=== PATIENT | female | born 1950 | race Caucasian/White ===

== ENCOUNTER 2017-04-11 14:20 | Emergency (ER) | payer OTHER, MEDICARE ==
[2017-04-11 14:31] VITALS: BP 155/98; PULSE 87; TEMP 98; BMI 36.6
--- NOTE | 2017-04-11 15:13 | PDOC ---
History of Present Illness - General Chief Complaint: Injury Stated Complaint: TRIP&FALL, RT HAND/WRIST, LF ELBOW/SHOULDER PAIN Time Seen by Provider: 04/11/17 14:35 - History of Present Illness Initial Comments: 04/11/17 15:24 66 yo F with h/o arthritis who presents for wrist/elbow pain. She reports walking down sidewalk one week ago and tripped landing on her right hand/elbow and left shoulder/elbow. Denies popping sensation or audible popping at time of incident. She presents 1 week later because she now has health insurance. States that at time of incidence she had was unable to passively move left shoulder d/t pain. Pain has improved. Complains of multiple healing bruises and abrasions. Denies head, neck, or back trauma or pain. Denies numbness/tingling, burning, swelling, or temperature changes of extremities. OTC analgesia with Tylenol. Not on anticoagulation. Today she request evaluation to r/o fractures or dislocations. Past History - Past Medical History Allergies/Adverse Reactions: Allergies Allergy/AdvReac Type Severity Reaction Status Date / Time No Known Allergies Allergy Verified 04/11/17 14:23 Home Medications: Ambulatory Orders Polyethylene Glycol 3350 [Miralax 255 gm Btl] 17 gm PO DAILY #1 bottle 03/17/13 Suicide Attempt (Hx): No Other medical history: ARTHRITIS, INTERIOR ISCHEMIA OPTIC NEUROPATHY - Surgical History Abdominal Surgery: Yes (BOWEL RESECTION DUE TO HERNIA) - Psycho/Social/Smoking Cessation Hx Anxiety: No Suicidal Ideation: No Smoking Status: No Smoking History: Never smoked Have you smoked in the past 12 months: No Number of Cigarettes Smoked Daily: 0 Information on smoking cessation initiated: No Hx Alcohol Use: No Drug/Substance Use Hx: No Review of Systems - Review of Systems Comments:: 04/11/17 14:58 GENERAL/CONSTITUTIONAL: No fever or chills. No weakness. HEAD, EYES, EARS, NOSE AND THROAT: No change in vision. No ear pain or discharge. No sore throat. CARDIOVASCULAR: No chest pain or shortness of breath RESPIRATORY: No cough, wheezing, or hemoptysis. GASTROINTESTINAL: No nausea, vomiting, diarrhea or constipation. GENITOURINARY: No dysuria, frequency, or change in urination. MUSCULOSKELETAL: + joint and muscle pain. No neck or back pain. SKIN: No rash NEUROLOGIC: No headache, vertigo, loss of consciousness, or change in strength/ sensation. ENDOCRINE: No increased thirst. No abnormal weight change HEMATOLOGIC/LYMPHATIC: No anemia, easy bleeding, or history of blood clots. ALLERGIC/IMMUNOLOGIC: No hives or skin allergy. *Physical Exam - Vital Signs Last Vital Signs Temp Pulse Resp BP Pulse Ox 98 F 87 18 155/98 98 04/11/17 14:20 04/11/17 14:20 04/11/17 14:20 04/11/17 14:20 04/11/17 14:20 - Physical Exam Comments: 04/11/17 14:58 GENERAL: Awake, alert, and fully oriented, in no acute distress HEAD: No signs of trauma, normocephalic, atraumatic NECK: Normal ROM, supple, no lymphadenopathy, JVD, or masses LUNGS: No distress, speaks full sentences, clear to auscultation bilaterally HEART: Regular rate and rhythm, normal S1 and S2, no murmurs, rubs or gallops, peripheral pulses normal and equal bilaterally. EXTREMITIES: + Echymosis over right volar distal forearm and palm. + right sided abrasion on posterior distal ulna. Mild tendon tenderness to palpation along right sided posterior-lateral 1st MCP. Left proximal radioulnar tenderness. Normal inspection, Normal range of motion, no edema. No clubbing or cyanosis. NEUROLOGICAL: Cranial nerves II through XII grossly intact. Normal speech, normal gait, no focal sensorimotor deficits SKIN: Warm, Dry, normal turgor, no rashes or lesions noted. . ED Treatment Course - RADIOLOGY Radiograph Interpretation: 04/11/17 16:30 EXAM#: TYPE/EXAM: RESULT: [id number] RAD/ELBOW-LEFT Left elbow: HISTORY: Left elbow pain. Rule out fracture. 3 views of the left elbow are provided. Linear lucency at the radial head with minimal depression of the articular surface is consistent with radial head fracture. No dislocation is seen. IMPRESSION: Radial head fracture as above. Findings were discussed with Dr. Rodríguez at 4:08 PM on April 11, 2017. Reported By: Sandra Cobian MD 1610 Medical Decision Making - Medical Decision Making 04/11/17 15:36 66 yo F with h/o arthritis who presents for wrist/elbow pain. She reports walking down sidewalk one week ago and tripped landing on her right hand/elbow and left shoulder/elbow. Denies numbness/tingling, burning, or dicsoloration of distal extremities to indicate neruovascular compromise. Absent snuff box tenderness with low suspicion of scaphoid fracture. Preserved active and passive range of motion in BL UE, and distal radial pulses intact. Tenderness at proximal radius and first right sided 1st metacarpal joint. DDx: sprain, strain, scaphoid fracture, colles fracture. ED Course: - RAD ELBOW LEFT: IMPRESSION: Radial head fracture as above. Findings were discussed with Dr. Rodríguez at 4:08 PM on April 11, 2017. Reported By: Sandra Cobian MD 1610 - WRIST RIGHT: Prelim: No acute fracture - Boostrix 0.5 ml IM x 1 - Per ortho recs: Left arm sling placement and f/u with Dr. Salas ( 04/13/17). - Home/stable *DC/Admit/Observation/Transfer Diagnosis at time of Disposition: Radial head fracture, closed Qualifiers: Encounter type: initial encounter Fracture alignment: nondisplaced Laterality: left Qualified Code(s): S52.125A - Nondisplaced fracture of head of left radius , initial encounter for closed fracture - Discharge Dispostion Disposition: HOME Condition at time of disposition: Stable Admit: No - Referrals Referrals: Sofia Vaughn [Primary Care Provider] - Tobin Newberry MD [Staff Physician] - - Patient Instructions Additional Instructions: Please continue to take Tylenol as needed for adequate pain control. Follow up with orthopedics Dr. Newberry in 2 days. They will be back in office on ( 04/13/2017 ). Print Language: PERSIAN - Attestations Physician Attestion: 04/11/17 15:43 I, Dr. Edil Pa, attest that this document has been prepared under my direction and personally reviewed by me in its entirety. I further attest, that it accurately reflects all work, treatment, procedures and medical decision -making performed by me.
[2017-04-11] MEDS ORDERED: DIPHTH,PERTUSS(ACELL),TET 0.5 ML DISP.SYRIN IM ONE (15:24)
--- NOTE | 2017-04-11 15:24 | PDOC ---
Attending Attestation - Resident Resident Name: ThiernoEdil - ED Attending Attestation I have performed the following: I have examined & evaluated the patient, The case was reviewed & discussed with the resident, I agree w/resident's findings & plan, Exceptions are as noted - HPI HPI: 04/11/17 15:38 66y F hx of arhtiritis presents for evaluation. The patient tripped while walking in [place] last week on uneven sidewalk, fell forward breaking fall with R hand, pt with complaints of R thumb/hand pain and L elbow soreness. pt also with some abrasions on R palm/elbow. no head injury, loc, neck pain, back pain. GENERAL: The patient is awake, alert, and fully oriented, Nontoxic - in no acute distress. HEAD: Normocephalic, atraumatic. EXTREMITIES: Normal range of motion, no edema. No clubbing or cyanosis. No cords, erythema, or tenderness. NEUROLOGICAL: No facial assymetry, Normal speech, PSYCH: Normal mood, normal affect. SKIN: Warm, Dry, normal turgor, Back: No midline tenderness to the cervical, thoracic or lumbar spine Musculoskelatal: FROM of b/l shoulders, elbows, wrist. FROM of hips, knees, ankles - No signs of ecchymosis, erythema, or crepitus noted on palpation extremities, chest wall, clavicals, ribs, back. mild discomfort on rom of L radial head, with very mild tenderness, mild tenderness over 1st metacarpal on R hand, normal ROM of digits, no pain on axial loading of digits. healing abrasions noted on R palm and R elbow with eschar - no surrounding erythema, warmth, tenderness. 04/11/17 16:38 pts xray noted for a L slightly depressed radial head fx pt was placed in a sling will have pt fu with orthopedics for evaluation tomorrow - Physicial Exam PE: 04/14/17 08:25 see above - Medical Decision Making 04/14/17 08:25 see above
== END 2017-04-11 17:28 | disposition home or self-care (01) ==
LOC: FER 14:20
PROC: 2W3DX1Z Immobilization of Left Lower Arm using Splint (ICD-10-PCS; principal; 2017-04-11)
PROC: 3E0234Z Introduction of Serum, Toxoid and Vaccine into Muscle, Percutaneous Approach (ICD-10-PCS; 2017-04-11)
DX: S52.125A Nondisplaced fracture of head of left radius, initial encounter for closed fracture (principal); W01.0XXA Fall on same level from slipping, tripping and stumbling without subsequent striking against object, initial encounter; Y93.01 Activity, walking, marching and hiking; Y92.9 Unspecified place or not applicable
CPT/HCPCS: 29125; 73070-TC-LT; 73110-TC-RT; 90471; 90715; 99283-25